=== PATIENT | male | born 1945 | race Caucasian/White ===

== ENCOUNTER 2016-12-03 15:13 | Emergency (ER) | payer OTHER ==
[~2016-12-03 15:13] MED LIST: ALBUTEROL HFA60 DOSE IN; APIDRA1 ML; ASPIRIN ADULT L81 MG PO; BACTRIM1 TAB PO; CHLORTHALIDONE25 MG PO; CYMBALTA20 MG PO; FLOVENT HFA110 MCG IN; FUROSEMIDE20 MG PO; LAMICTAL25 M1 PO; LEVOFLOXACIN500 MG PO; LISINOPRIL10 MG PO; MIRAPEX0.25 MG PO; MUPIROCIN2 %; SPIRIVA18 MCG INH; [UNRECOGNIZED DRUG - OTHER]
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
--- NOTE | 2016-12-03 16:30 | ED CLINICAL REPORT ---
Clinical Report - Physicians/Mid Levels [facility] [address] [place] [address] 12/03/2016 15:13 Patient: ZHEN GRAHAM JR Time Seen: 15:19. Arrived- By ambulance. Historian- patient and EMS personnel. History limited by vague historian. HISTORY OF PRESENT ILLNESS Chief Complaint: LESION and TENDER AREA. This started several days ago and is still present. It was gradual in onset and has been constant. It is described as painful. It has been located on the right lower extremity and left lower extremity. A possible cause has been identified (The patient reports that in his house and there are insects and he wonders ifone they crawled across his feet they may have bitten him or injured his feet.). He had a recent insect bite (possibly). Similar symptoms previously: Several times. REVIEW OF SYSTEMS No chills, fever, sweats, calf pain or chest pain. No cough, difficulty breathing, pedal edema, palpitations or abdominal pain. No constipation, diarrhea, nausea, vomiting or urinary problems. All systems otherwise negative, except as recorded above. SOCIAL HISTORY Current every day light tobacco smoker (cigarette)- less than 1/2 a pack per day. FAMILY HISTORY Denies family medical history. ADDITIONAL NOTES The nursing notes have been reviewed. PHYSICAL EXAM Vital Signs: 12/03/2016 15:18 BP: 109/61. HR: 87. RR: 16. O2 saturation: 96%. Temp: 97.5 F. Pain level now: 7/10. Have been reviewed. Appearance: Alert. Eyes: Pupils equal, round and reactive to light. ENT: Pharynx normal. Neck: Neck supple. CVS: Normal heart rate and rhythm. Heart sounds normal. Respiratory: No respiratory distress. Breath sounds normal. Abdomen: Nontender. No organomegaly. Skin: Medium area of cellulitis with tenderness, erythema and warmth to right leg and left foot. He has a single medium abrasion on the left 5th toe with infection. Extremities: Extremities nontender. No calf tenderness. PROGRESS AND PROCEDURES Course of Care: Patient is stable. Patient/family counseled. Old medical records reviewed. Disposition: Discharged. Condition: stable. CLINICAL IMPRESSION Cellulitis of the right lower leg, left foot and left 5th toe. Single deep abrasion to the left 5th toe. INSTRUCTIONS Warnings: Further evaluation is necessary. GENERAL WARNINGS: Return or contact your physician immediately if your condition worsens or changes unexpectedly, if not improving as expected, or if other problems arise. Your Current Medications: CONTINUE TAKING THE FOLLOWING MEDICATIONS: Chlorthalidone Oral : Tablet 25 mg. DULoxetine HCl Oral : 20 mg daily. LamoTRIgine Oral : Tablet Dispersible 25 mg, 25mg bid. Lantus Subcutaneous : Solution 100 unit/mL, 75 Units every AM. Lisinopril Oral : 10 mg daily. Metoprolol Tartrate Oral : Tablet 25 mg, 1 tablet 2xday. Pramipexole Dihydrochloride Oral : Tablet 1 mg, 1 tablet 3x a day. Prescription Medications: Trimethoprim-Sulfamethoxazole DS: take 1 tablet orally every 12 hours for 10 days. No refill. Follow-up: Follow up with your doctor in seven days. Call for the next available appointment. Understanding of the discharge instructions verbalized by patient. Follow-up with: Ezekiel Mcclelland DPM, Podiatry, , [facility], [address] [place] [address], [address] [address] Follow up Tuesday in three days. Call for an appointment. (Electronically signed by Pérez Clemons MD 12/07/2016 10:26)
--- NOTE | 2016-12-03 16:30 | ED CLINICAL REPORT ---
Clinical Report - Physicians/Mid Levels [facility] [address] [place] [address] 12/03/2016 15:13 Patient: ZHEN GRAHAM JR Time Seen: 15:19. Arrived- By ambulance. Historian- patient and EMS personnel. History limited by vague historian. HISTORY OF PRESENT ILLNESS Chief Complaint: LESION and TENDER AREA. This started several days ago and is still present. It was gradual in onset and has been constant. It is described as painful. It has been located on the right lower extremity and left lower extremity. A possible cause has been identified (The patient reports that in his house and there are insects and he wonders ifone they crawled across his feet they may have bitten him or injured his feet.). He had a recent insect bite (possibly). Similar symptoms previously: Several times. REVIEW OF SYSTEMS No chills, fever, sweats, calf pain or chest pain. No cough, difficulty breathing, pedal edema, palpitations or abdominal pain. No constipation, diarrhea, nausea, vomiting or urinary problems. All systems otherwise negative, except as recorded above. SOCIAL HISTORY Current every day light tobacco smoker (cigarette)- less than 1/2 a pack per day. FAMILY HISTORY Denies family medical history. ADDITIONAL NOTES The nursing notes have been reviewed. PHYSICAL EXAM Vital Signs: 12/03/2016 15:18 BP: 109/61. HR: 87. RR: 16. O2 saturation: 96%. Temp: 97.5 F. Pain level now: 7/10. Have been reviewed. Appearance: Alert. Eyes: Pupils equal, round and reactive to light. ENT: Pharynx normal. Neck: Neck supple. CVS: Normal heart rate and rhythm. Heart sounds normal. Respiratory: No respiratory distress. Breath sounds normal. Abdomen: Nontender. No organomegaly. Skin: Medium area of cellulitis with tenderness, erythema and warmth to right leg and left foot. He has a single medium abrasion on the left 5th toe with infection. Extremities: Extremities nontender. No calf tenderness. PROGRESS AND PROCEDURES Course of Care: Patient is stable. Patient/family counseled. Old medical records reviewed. Disposition: Discharged. Condition: stable. CLINICAL IMPRESSION Cellulitis of the right lower leg, left foot and left 5th toe. Single deep abrasion to the left 5th toe. INSTRUCTIONS Warnings: Further evaluation is necessary. GENERAL WARNINGS: Return or contact your physician immediately if your condition worsens or changes unexpectedly, if not improving as expected, or if other problems arise. Your Current Medications: CONTINUE TAKING THE FOLLOWING MEDICATIONS: Chlorthalidone Oral : Tablet 25 mg. DULoxetine HCl Oral : 20 mg daily. LamoTRIgine Oral : Tablet Dispersible 25 mg, 25mg bid. Lantus Subcutaneous : Solution 100 unit/mL, 75 Units every AM. Lisinopril Oral : 10 mg daily. Metoprolol Tartrate Oral : Tablet 25 mg, 1 tablet 2xday. Pramipexole Dihydrochloride Oral : Tablet 1 mg, 1 tablet 3x a day. Prescription Medications: Trimethoprim-Sulfamethoxazole DS: take 1 tablet orally every 12 hours for 10 days. No refill. Follow-up: Follow up with your doctor in seven days. Call for the next available appointment. Understanding of the discharge instructions verbalized by patient. Follow-up with: Ezekiel Mcclelland DPM, Podiatry, , [facility], [address] [place] [address], [address] [address] Follow up Tuesday in three days. Call for an appointment. (Electronically signed by Pérez Clemons MD 12/07/2016 10:26)
--- NOTE | 2016-12-07 10:27 | ED MED RECONCILIATION SUMMARY ---
Patient: ZHEN GRAHAM JR Medication Reconciliation Report [facility] VisitID: [id number] [address] [place] [address] 71y, M Registration Date/Time: 12/03/2016 Weight: 78.9 kg Height/Length: 64 in. BMI: 29.9 ALLERGIES: PHENobarbital The patient's Home Medications are listed below: CONTINUE TAKING THE FOLLOWING MEDICATIONS: Chlorthalidone Oral (25 mg) DULoxetine HCl Oral 20 mg , daily LamoTRIgine Oral (25 mg) 25mg, bid Lantus Subcutaneous (100 unit/mL) 75 Units, every AM Lisinopril Oral 10 mg, daily Metoprolol Tartrate Oral (25 mg) 1 tablet, 2xday Pramipexole Dihydrochloride Oral (1 mg) 1 tablet, 3x a day The source(s) of the original Home Medication information: Not obtained. The following Medications were given to the patient in the Emergency Department: None. The following Medications were prescribed to the patient: Trimethoprim-Sulfamethoxazole DS: take 1 tablet orally every 12 hours for 10 days. No refill. -- Pérez Clemons MD
--- NOTE | 2016-12-07 10:27 | ED MAR SUMMARY ---
..... Medication Administration Record [facility] [address] [place], [place] [id number] Patient: ZHEN GRAHAM Visit ID: [id number] 71y, M Weight: 78.9 kg Height/Length: 64 in BMI: 29.9 ALLERGIES: PHENobarbital
--- NOTE | 2016-12-07 10:27 | ED DISCHARGE INSTRUCTIONS ---
Patient: ZHEN GRAHAM JR General Instructions [facility] VisitID: [id number] [place] [address] 71y, M Registration Date/Time: 12/03/2016 Cellulitis of the right lower leg, left foot and left 5th toe. Single deep abrasion to the left 5th toe. INSTRUCTIONS Warnings: Further evaluation is necessary. GENERAL WARNINGS: Return or contact your physician immediately if your condition worsens or changes unexpectedly, if not improving as expected, or if other problems arise. Your Current Medications: CONTINUE TAKING THE FOLLOWING MEDICATIONS: Chlorthalidone Oral : Tablet 25 mg. DULoxetine HCl Oral : 20 mg daily. LamoTRIgine Oral : Tablet Dispersible 25 mg, 25mg bid. Lantus Subcutaneous : Solution 100 unit/mL, 75 Units every AM. Lisinopril Oral : 10 mg daily. Metoprolol Tartrate Oral : Tablet 25 mg, 1 tablet 2xday. Pramipexole Dihydrochloride Oral : Tablet 1 mg, 1 tablet 3x a day. Prescription Medications: Trimethoprim-Sulfamethoxazole DS: take 1 tablet orally every 12 hours for 10 days. No refill. Follow-up: Follow up with your doctor in seven days. Call for the next available appointment. Understanding of the discharge instructions verbalized by patient. Follow-up with: Ezekiel Mcclelland DPM, Podiatry, , [facility], [address] [place] [address], [place] [address] Follow up Tuesday in three days. Call for an appointment. ADDITIONAL INFORMATION Cellulitis You have an infection of the skin known as cellulitis. This usually starts with a scrape, cut, insect bite, blister or other opening in the skin which becomes infected. This is a serious condition. It must be watched closely to be sure the infection is not spreading. With antibiotic treatment, the size of the red area will gradually shrink in size until the skin returns to normal. This will take 7-10 days. The red area should never increase in size once the antibiotic medicine has been started. Occasionally, an infection will be resistant to one antibiotic and another one will have to be used. Home Care: 1) Limit the use of the affected part, since excess movement can cause the infection to spread. 2) If the infection is on your leg, walk as little as possible during the first few days of the treatment. Keep your leg elevated while sitting. This will reduce swelling. 3) Take all of the antibiotic medicine exactly as directed until it is gone. Be careful not to miss any doses, especially during the first seven days. Follow Up with your doctor or this facility as directed. Check the infected area daily for the warning signs listed below. Get Prompt Medical Attention if any of the following occur: -- Spreading area of redness -- Increasing swelling or pain -- Appearance of pus or drainage -- Fever over 100.4 F (38.0 C) oral, or over 101.4 F (38.6 C) rectal, after two days on antibiotics Abrasions Abrasions are skin scrapes. Their treatment depends on how large and deep the abrasion is. Home Care: If you were given a bandage, change it once a day. If your bandage sticks to the wound, soak it in warm water until it loosens. Wash the area with soap and water to remove all the cream/ointment. You may do this in a sink, under a tub faucet or shower. Rinse off the soap and pat dry with a clean towel. Reapply cream/ointment according to your doctor's instructions. This will prevent infection and help prevent the bandage from sticking. Cover the wound with a fresh non-stick bandage (Telfa). Repeat steps 1 to 4 daily, or as directed by your doctor. If the bandage becomes wet or dirty, change it as soon as possible. You may use acetaminophen (Tylenol) or ibuprofen (Motrin, Advil) to control pain, unless another pain medicine was prescribed. [ NOTE : If you have chronic liver or kidney disease or ever had a stomach ulcer or GI bleeding, talk with your doctor before using these medicines.] Do not use ibuprofen in children under six months of age. Follow Up with your physician or this facility as directed by our staff. Most skin wounds heal within ten days. However, an infection may occur despite proper treatment. Therefore, look for the early signs of infection listed below. Get Prompt Medical Attention if any of the following occur: Increasing pain in the wound Increasing redness or swelling Pus coming from the wound Fever of 100.4F (38C) or higher, or as directed by your healthcare provider Sulfamethoxazole, Trimethoprim Oral tablet What is this medicine? SULFAMETHOXAZOLE; TRIMETHOPRIM or SMX-TMP (suhl fuh meth OK lauren zohl; trye METH oh prim) is a combination of a sulfonamide antibiotic and a second antibiotic, trimethoprim. It is used to treat or prevent certain kinds of bacterial infections. It will not work for colds, flu, or other viral infections. How should I use this medicine? Take this medicine by mouth with a full glass of water. Follow the directions on the prescription label. Take your medicine at regular intervals. Do not take it more often than directed. Do not skip doses or stop your medicine early. Talk to your craft center director regarding the use of this medicine in children. Special care may be needed. This medicine has been used in children as young as 2 months of age. What side effects may I notice from receiving this medicine? Side effects that you should report to your doctor or health career developer as soon as possible: allergic reactions like skin rash or hives, swelling of the face, lips, or tongue breathing problems fever or chills, sore throat irregular heartbeat, chest pain joint or muscle pain pain or difficulty passing urine red pinpoint spots on skin redness, blistering, peeling or loosening of the skin, including inside the mouth unusual bleeding or bruising unusually weak or tired yellowing of the eyes or skin Side effects that usually do not require medical attention (report to your doctor or health career developer if they continue or are bothersome): diarrhea dizziness headache loss of appetite nausea, vomiting nervousness What may interact with this medicine? Do not take this medicine with any of the following medications: aminobenzoate potassium dofetilide metronidazole This medicine may also interact with the following medications: MICHAEL inhibitors like benazepril, enalapril, lisinopril, and ramipril cyclosporine digoxin diuretics indomethacin medicines for diabetes methenamine methotrexate phenytoin potassium supplements pyrimethamine sulfinpyrazone tricyclic antidepressants warfarin What if I miss a dose? If you miss a dose, take it as soon as you can. If it is almost time for your next dose, take only that dose. Do not take double or extra doses. Where should I keep my medicine? Keep out of the reach of children. Store at room temperature between 20 to 25 degrees C (68 to 77 degrees F). Protect from light. Throw away any unused medicine after the expiration date. What should I tell my health care provider before I take this medicine? They need to know if you have any of these conditions: anemia asthma being treated with anticonvulsants if you frequently drink alcohol containing drinks kidney disease liver disease low level of folic acid or [id number] dehydrogenase poor nutrition or malabsorption porphyria severe allergies thyroid disorder an unusual or allergic reaction to sulfamethoxazole, trimethoprim, sulfa drugs, other medicines, foods, dyes, or preservatives or trying to get breast-feeding What should I watch for while using this medicine? Tell your doctor or health career developer if your symptoms do not improve. Drink several glasses of water a day to reduce the risk of kidney problems. Do not treat diarrhea with over the counter products. Contact your doctor if you have diarrhea that lasts more than 2 days or if it is severe and watery. This medicine can make you more sensitive to the sun. Keep out of the sun. If you cannot avoid being in the sun, wear protective clothing and use a sunscreen. Do not use sun lamps or tanning beds/booths. You have been given the following additional information: Cellulitis Abrasion Sulfamethoxazole, Trimethoprim Oral tablet (Electronically signed by Pérez Clemons MD 12/07/2016 10:26)
--- NOTE | 2016-12-07 10:27 | ED DISCHARGE INSTRUCTIONS ---
Patient: ZHEN GRAHAM JR General Instructions [facility] VisitID: [id number] [place] [address] 71y, M Registration Date/Time: 12/03/2016 Cellulitis of the right lower leg, left foot and left 5th toe. Single deep abrasion to the left 5th toe. INSTRUCTIONS Warnings: Further evaluation is necessary. GENERAL WARNINGS: Return or contact your physician immediately if your condition worsens or changes unexpectedly, if not improving as expected, or if other problems arise. Your Current Medications: CONTINUE TAKING THE FOLLOWING MEDICATIONS: Chlorthalidone Oral : Tablet 25 mg. DULoxetine HCl Oral : 20 mg daily. LamoTRIgine Oral : Tablet Dispersible 25 mg, 25mg bid. Lantus Subcutaneous : Solution 100 unit/mL, 75 Units every AM. Lisinopril Oral : 10 mg daily. Metoprolol Tartrate Oral : Tablet 25 mg, 1 tablet 2xday. Pramipexole Dihydrochloride Oral : Tablet 1 mg, 1 tablet 3x a day. Prescription Medications: Trimethoprim-Sulfamethoxazole DS: take 1 tablet orally every 12 hours for 10 days. No refill. Follow-up: Follow up with your doctor in seven days. Call for the next available appointment. Understanding of the discharge instructions verbalized by patient. Follow-up with: Ezekiel Mcclelland DPM, Podiatry, , [facility], [address] [place] [address], [place] [id number] Follow up Tuesday in three days. Call for an appointment. ADDITIONAL INFORMATION Cellulitis You have an infection of the skin known as cellulitis. This usually starts with a scrape, cut, insect bite, blister or other opening in the skin which becomes infected. This is a serious condition. It must be watched closely to be sure the infection is not spreading. With antibiotic treatment, the size of the red area will gradually shrink in size until the skin returns to normal. This will take 7-10 days. The red area should never increase in size once the antibiotic medicine has been started. Occasionally, an infection will be resistant to one antibiotic and another one will have to be used. Home Care: 1) Limit the use of the affected part, since excess movement can cause the infection to spread. 2) If the infection is on your leg, walk as little as possible during the first few days of the treatment. Keep your leg elevated while sitting. This will reduce swelling. 3) Take all of the antibiotic medicine exactly as directed until it is gone. Be careful not to miss any doses, especially during the first seven days. Follow Up with your doctor or this facility as directed. Check the infected area daily for the warning signs listed below. Get Prompt Medical Attention if any of the following occur: -- Spreading area of redness -- Increasing swelling or pain -- Appearance of pus or drainage -- Fever over 100.4 F (38.0 C) oral, or over 101.4 F (38.6 C) rectal, after two days on antibiotics Abrasions Abrasions are skin scrapes. Their treatment depends on how large and deep the abrasion is. Home Care: If you were given a bandage, change it once a day. If your bandage sticks to the wound, soak it in warm water until it loosens. Wash the area with soap and water to remove all the cream/ointment. You may do this in a sink, under a tub faucet or shower. Rinse off the soap and pat dry with a clean towel. Reapply cream/ointment according to your doctor's instructions. This will prevent infection and help prevent the bandage from sticking. Cover the wound with a fresh non-stick bandage (Telfa). Repeat steps 1 to 4 daily, or as directed by your doctor. If the bandage becomes wet or dirty, change it as soon as possible. You may use acetaminophen (Tylenol) or ibuprofen (Motrin, Advil) to control pain, unless another pain medicine was prescribed. [ NOTE : If you have chronic liver or kidney disease or ever had a stomach ulcer or GI bleeding, talk with your doctor before using these medicines.] Do not use ibuprofen in children under six months of age. Follow Up with your physician or this facility as directed by our staff. Most skin wounds heal within ten days. However, an infection may occur despite proper treatment. Therefore, look for the early signs of infection listed below. Get Prompt Medical Attention if any of the following occur: Increasing pain in the wound Increasing redness or swelling Pus coming from the wound Fever of 100.4F (38C) or higher, or as directed by your healthcare provider Sulfamethoxazole, Trimethoprim Oral tablet What is this medicine? SULFAMETHOXAZOLE; TRIMETHOPRIM or SMX-TMP (suhl fuh meth OK lauren zohl; trye METH oh prim) is a combination of a sulfonamide antibiotic and a second antibiotic, trimethoprim. It is used to treat or prevent certain kinds of bacterial infections. It will not work for colds, flu, or other viral infections. How should I use this medicine? Take this medicine by mouth with a full glass of water. Follow the directions on the prescription label. Take your medicine at regular intervals. Do not take it more often than directed. Do not skip doses or stop your medicine early. Talk to your duty engineer regarding the use of this medicine in children. Special care may be needed. This medicine has been used in children as young as 2 months of age. What side effects may I notice from receiving this medicine? Side effects that you should report to your doctor or health career advisor as soon as possible: allergic reactions like skin rash or hives, swelling of the face, lips, or tongue breathing problems fever or chills, sore throat irregular heartbeat, chest pain joint or muscle pain pain or difficulty passing urine red pinpoint spots on skin redness, blistering, peeling or loosening of the skin, including inside the mouth unusual bleeding or bruising unusually weak or tired yellowing of the eyes or skin Side effects that usually do not require medical attention (report to your doctor or health career advisor if they continue or are bothersome): diarrhea dizziness headache loss of appetite nausea, vomiting nervousness What may interact with this medicine? Do not take this medicine with any of the following medications: aminobenzoate potassium dofetilide metronidazole This medicine may also interact with the following medications: MICHAEL inhibitors like benazepril, enalapril, lisinopril, and ramipril cyclosporine digoxin diuretics indomethacin medicines for diabetes methenamine methotrexate phenytoin potassium supplements pyrimethamine sulfinpyrazone tricyclic antidepressants warfarin What if I miss a dose? If you miss a dose, take it as soon as you can. If it is almost time for your next dose, take only that dose. Do not take double or extra doses. Where should I keep my medicine? Keep out of the reach of children. Store at room temperature between 20 to 25 degrees C (68 to 77 degrees F). Protect from light. Throw away any unused medicine after the expiration date. What should I tell my health care provider before I take this medicine? They need to know if you have any of these conditions: anemia asthma being treated with anticonvulsants if you frequently drink alcohol containing drinks kidney disease liver disease low level of folic acid or [id number] dehydrogenase poor nutrition or malabsorption porphyria severe allergies thyroid disorder an unusual or allergic reaction to sulfamethoxazole, trimethoprim, sulfa drugs, other medicines, foods, dyes, or preservatives or trying to get breast-feeding What should I watch for while using this medicine? Tell your doctor or health career advisor if your symptoms do not improve. Drink several glasses of water a day to reduce the risk of kidney problems. Do not treat diarrhea with over the counter products. Contact your doctor if you have diarrhea that lasts more than 2 days or if it is severe and watery. This medicine can make you more sensitive to the sun. Keep out of the sun. If you cannot avoid being in the sun, wear protective clothing and use a sunscreen. Do not use sun lamps or tanning beds/booths. You have been given the following additional information: Cellulitis Abrasion Sulfamethoxazole, Trimethoprim Oral tablet (Electronically signed by Pérez Clemons MD 12/07/2016 10:26)
--- NOTE | 2016-12-07 10:27 | ED MED RECONCILIATION SUMMARY ---
Patient: ZHEN GRAHAM JR Medication Reconciliation Report VisitID: [id number] [address] [place] [address] 71y, M Registration Date/Time: 12/03/2016 Weight: 78.9 kg Height/Length: 64 in. BMI: 29.9 ALLERGIES: PHENobarbital The patient's Home Medications are listed below: CONTINUE TAKING THE FOLLOWING MEDICATIONS: Chlorthalidone Oral (25 mg) DULoxetine HCl Oral 20 mg , daily LamoTRIgine Oral (25 mg) 25mg, bid Lantus Subcutaneous (100 unit/mL) 75 Units, every AM Lisinopril Oral 10 mg, daily Metoprolol Tartrate Oral (25 mg) 1 tablet, 2xday Pramipexole Dihydrochloride Oral (1 mg) 1 tablet, 3x a day The source(s) of the original Home Medication information: Not obtained. The following Medications were given to the patient in the Emergency Department: None. The following Medications were prescribed to the patient: Trimethoprim-Sulfamethoxazole DS: take 1 tablet orally every 12 hours for 10 days. No refill. -- Pérez Clemons MD
--- NOTE | 2016-12-07 10:27 | ED MAR SUMMARY ---
..... Medication Administration Record [facility] [address] [place], [place] [id number] Patient: ZHEN GRAHAM Visit ID: [id number] 71y, M Weight: 78.9 kg Height/Length: 64 in BMI: 29.9 ALLERGIES: PHENobarbital
== END 2016-12-03 16:50 | disposition home or self-care (01) ==
LOC: ED SRH 15:13
DX: L03.115 Cellulitis of right lower limb (principal); L03.032 Cellulitis of left toe; F17.210 Nicotine dependence, cigarettes, uncomplicated

== ENCOUNTER 2017-03-13 14:35 | Emergency (ER) | payer OTHER ==
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
--- NOTE | 2017-03-13 18:00 | ED ORDER SUMMARY ---
..... Patient: ZHEN GRAHAM JR OrderSheet [facility] VisitID: [id number] [place] [address] 71y, M Registration Date/Time: 03/13/2017 ORDER SHEET Weight: 78 kg (stated) Allergies: PHENobarbital GENERAL ORDERS: Urine Drug Screen Urgent (15:25 03/13/2017 Melissa Bennett per protocol) (15:25 Melissa Arora.Jason) Breathalyzer (16:37 03/13/2017 Alba KRISHNA) (17:18 Ama) MEDICATION ORDERS: IV FLUIDS: ORDER SHEET NOTES: [Electronically signed by Asher Prado R.N. (18:38 03/13/2017)] [Electronically signed by Dana Brandt MD (21:46 03/13/2017)] [Electronically locked/signed by Asher Prado R.N. (18:38 03/13/2017)]
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
--- NOTE | 2017-03-13 18:00 | ED CLINICAL REPORT ---
Clinical Report - Physicians/Mid Levels [place] [address] [place] [address] 03/13/2017 14:35 Patient: ZHEN GRAHAM JR Time Seen: 15:00. Arrived- By ambulance. In custody. Historian- patient and EMS personnel. HISTORY OF PRESENT ILLNESS Chief Complaint: AGITATED. This started today. The patient has experienced situational problems. Recent methamphetamines use and alcohol consumption. Has been paranoid but eating or sleeping and not been depressed. No anxiety, anger, unusual behavior, suicidal thoughts or self-injury inflicted. He has had delusions and hallucinations. The symptoms are described as moderate. No injury is present. Additional history - The police report states that the patient was found to be agitated outside his home, holding a pair of pliers and pretending it was a gun. Patient was pointing the pliers at his house and yelling for people to come out of it. The police state that they tried to get the patient to come to the emergency department voluntarily for a mental health evaluation; however, patient refused and so the patient was brought by the police involuntarily. Police report states that they have responded to multiple calls to the patient's house after patient reported people squatting in his crawlspace. Nobody has ever been found to be living on the patient's property besides the patient, and police report states that the patient has almost always been under the influence of alcohol when they have been called to his house. Patient is also known to use methamphetamines. Patient states that he did not intend to harm anybody, but he just wanted the people to leave his house. Similar symptoms previously: Recent medical care: The patient was seen recently by a health care provider. REVIEW OF SYSTEMS No headache, dizziness, weakness, chest pain or palpitations. No abdominal pain, vomiting, diarrhea, black stools or numbness. No fever, sore throat, cough, difficulty breathing or urinary frequency. No skin rash, enlarged lymph nodes, joint pain, weight loss or laceration. All systems otherwise negative, except as recorded above. PAST HISTORY Problems: Abscess. MRSA Infection. Sciatica. Substance Abuse. Hard of Hearing. Syncope. Peripheral Neuropathy. Tetanus Status. Immunizations. Pancreatitis. Hyperkalemia. Dehydration. Renal Failure. Hypertension. Additional Surgeries: Ankle (bilat). Appendectomy. Back Surgery. Clavical repair. Hand (bilat). Knee Surgery. Neck Surgery. Shoulder Surgery. Splenectomy. Medications: Chlorthalidone Oral (Tablet 25 mg). DULoxetine HCl Oral 20 mg , daily. LamoTRIgine Oral (Tablet Dispersible 25 mg) 25mg, bid. Lantus Subcutaneous (Solution 100 unit/mL) 75 Units, every AM. Lisinopril Oral 10 mg, daily. Metoprolol Tartrate Oral (Tablet 25 mg) 1 tablet, 2xday. Pramipexole Dihydrochloride Oral (Tablet 1 mg) 1 tablet, 3x a day. Allergies: PHENobarbital. Definite Severe (Coma). SOCIAL HISTORY Smoker- current status unknown. Alcohol use. History of drug use: methamphetamines. ADDITIONAL NOTES The nursing notes have been reviewed. PHYSICAL EXAM Vital Signs: 03/13/2017 14:45 BP: 128/73. HR: 108. RR: 20. O2 saturation: 93%. Temp: 98.3 F. Have been reviewed. Appearance: Alert. No acute distress. Is disheveled. Eyes: Pupils equal, round and reactive to light. Neck: Normal inspection. Neck supple. CVS: Normal heart rate and rhythm. Heart sounds normal. Respiratory: Breath sounds normal. Chest nontender. Abdomen: Soft and nontender. Back: No tenderness. Skin: Skin warm and dry. Normal skin color. Normal skin turgor. Extremities: Extremities exhibit normal ROM. No lower extremity edema. Psych / Neuro: Oriented X 3. Mood and affect normal. Speech normal. Cognition normal. Thought process and content normal. Cranial nerves normal (as tested). No cerebellar findings. No motor deficit. No sensory deficit. LABS, X-RAYS, AND EKG Laboratory Tests: Urine Drug Screen: (NEIL: 03/13/2017 15:20) ( MsgRcvd 03/13/2017 15:49) Final results Test Result Flag Units (Reference) AMPHETAMINE/METHAMPHETAMINE POSITIVE H (NEGATIVE) BARBITURATE NEGATIVE (NEGATIVE) BENZODIAZEPINE NEGATIVE (NEGATIVE) CANNABINOID POSITIVE H (NEGATIVE) COCAINE NEGATIVE (NEGATIVE) ECSTASY NEGATIVE (NEGATIVE) METHADONE NEGATIVE (NEGATIVE) OPIATE NEGATIVE (NEGATIVE) The urine drug screen is a qualitative screening test fordrug overdose and abuse. All screen results should beconsidered as presumptive.Drugs screened for are as follows:BenzodiazepinesCocaineAmphetamines/MetamphetaminesTHC (Tetrahydrocannabinol)OpiatesBarbituratesEcstasyMethadonePositive results are unconfirmed. For confirmation, notifythe lab for the specimen to be sent to the reference lab.All confirmations must be performed by a differentmethodology.The ingestion of natural herbal and plant productscontaining Ephedra/Ephedra metabolites can produce in urineone or more substances capable of cross reacting withamphetamine/methamphetamine immunoassays. These testsprovide a preliminary result only. A more specificalternative chemical method must be used to obtain aconfirmed analytical result. . Pulse Oximetry: 03/13/2017 14:45 O2 saturation: 93%. (FIO2 - room air). Interpretation: normal. PROGRESS AND PROCEDURES Course of Care: The pt was coherent in the emergency department, and answered questions appropriately. It was not clear whether the pt's perception of having people at his home was correct or not; however, this was a chronic issue, likely at least exacerbated, if not fully caused, by the pt's methamphetamine and alcohol abuse. Given the substance abuse and the likelihood to cause the kind of chronic symptoms the patient is having, I did not feel that a mental health evaluation would be helpful at this time. Patient stated he would like to go home, and the patient was not suicidal or homicidal. Patient counseled in person regarding the patient's stable condition, test results, diagnosis and need for follow-up. Concerns were addressed. Old medical records reviewed. Disposition: Discharged. Condition: stable. CLINICAL IMPRESSION Substance abuse problems: abuse of methamphetamine. INSTRUCTIONS Warnings: GENERAL WARNINGS: Return or contact your physician immediately if your condition worsens or changes unexpectedly, if not improving as expected, or if other problems arise. Your Current Medications: CONTINUE TAKING THE FOLLOWING MEDICATIONS: Chlorthalidone Oral : Tablet 25 mg. DULoxetine HCl Oral : 20 mg daily. LamoTRIgine Oral : Tablet Dispersible 25 mg, 25mg bid. Lantus Subcutaneous : Solution 100 unit/mL, 75 Units every AM. Lisinopril Oral : 10 mg daily. Metoprolol Tartrate Oral : Tablet 25 mg, 1 tablet 2xday. Pramipexole Dihydrochloride Oral : Tablet 1 mg, 1 tablet 3x a day. Follow-up: Follow up with your doctor. Call for the next available appointment. Understanding of the discharge instructions verbalized by patient. (Electronically signed by Dana Brandt MD 03/13/2017 21:46)
--- NOTE | 2017-03-13 18:00 | ED ORDER SUMMARY ---
..... Patient: ZHEN GRAHAM JR OrderSheet [facility] VisitID: [id number] [place] [address] 71y, M Registration Date/Time: 03/13/2017 ORDER SHEET Weight: 78 kg (stated) Allergies: PHENobarbital GENERAL ORDERS: Urine Drug Screen Urgent (15:25 03/13/2017 Melissa Bennett per protocol) (15:25 Melissa Arora.Jason) Breathalyzer (16:37 03/13/2017 Alba KRISHNA) (17:18 Ama) MEDICATION ORDERS: IV FLUIDS: ORDER SHEET NOTES: [Electronically signed by Asher Prado R.N. (18:38 03/13/2017)] [Electronically signed by Dana Brandt MD (21:46 03/13/2017)] [Electronically locked/signed by Asher Prado R.N. (18:38 03/13/2017)]
--- NOTE | 2017-03-13 21:46 | ED MED RECONCILIATION SUMMARY ---
Patient: ZHEN GRAHAM JR Medication Reconciliation Report [facility] VisitID: [id number] [address] [place] [address] 71y, M Registration Date/Time: 03/13/2017 Weight: 78 kg Height/Length: 64 in. BMI: 29.5 ALLERGIES: PHENobarbital The patient's Home Medications are listed below: CONTINUE TAKING THE FOLLOWING MEDICATIONS: Chlorthalidone Oral (25 mg) DULoxetine HCl Oral 20 mg , daily LamoTRIgine Oral (25 mg) 25mg, bid Lantus Subcutaneous (100 unit/mL) 75 Units, every AM Lisinopril Oral 10 mg, daily Metoprolol Tartrate Oral (25 mg) 1 tablet, 2xday Pramipexole Dihydrochloride Oral (1 mg) 1 tablet, 3x a day The source(s) of the original Home Medication information: Not obtained. The following Medications were given to the patient in the Emergency Department: None. The following Medications were prescribed to the patient: None.
--- NOTE | 2017-03-13 21:46 | ED MAR SUMMARY ---
..... Medication Administration Record [facility] [address] [place], [place] [id number] Patient: ZHEN GRAHAM Visit ID: [id number] 71y, M Weight: 78.0 kg Height/Length: 64 in BMI: 29.5 ALLERGIES: PHENobarbital
--- NOTE | 2017-03-13 21:46 | ED MED RECONCILIATION SUMMARY ---
Patient: ZHEN GRAHAM JR Medication Reconciliation Report [facility] VisitID: [id number] [address] [place] [address] 71y, M Registration Date/Time: 03/13/2017 Weight: 78 kg Height/Length: 64 in. BMI: 29.5 ALLERGIES: PHENobarbital The patient's Home Medications are listed below: CONTINUE TAKING THE FOLLOWING MEDICATIONS: Chlorthalidone Oral (25 mg) DULoxetine HCl Oral 20 mg , daily LamoTRIgine Oral (25 mg) 25mg, bid Lantus Subcutaneous (100 unit/mL) 75 Units, every AM Lisinopril Oral 10 mg, daily Metoprolol Tartrate Oral (25 mg) 1 tablet, 2xday Pramipexole Dihydrochloride Oral (1 mg) 1 tablet, 3x a day The source(s) of the original Home Medication information: Not obtained. The following Medications were given to the patient in the Emergency Department: None. The following Medications were prescribed to the patient: None.
--- NOTE | 2017-03-13 21:46 | ED DISCHARGE INSTRUCTIONS ---
Patient: ZHEN GRAHAM General Instructions [facility] VisitID: [id number] [place] [address] 71y, M Registration Date/Time: 03/13/2017 Substance abuse problems: abuse of methamphetamine. INSTRUCTIONS Warnings: GENERAL WARNINGS: Return or contact your physician immediately if your condition worsens or changes unexpectedly, if not improving as expected, or if other problems arise. Your Current Medications: CONTINUE TAKING THE FOLLOWING MEDICATIONS: Chlorthalidone Oral : Tablet 25 mg. DULoxetine HCl Oral : 20 mg daily. LamoTRIgine Oral : Tablet Dispersible 25 mg, 25mg bid. Lantus Subcutaneous : Solution 100 unit/mL, 75 Units every AM. Lisinopril Oral : 10 mg daily. Metoprolol Tartrate Oral : Tablet 25 mg, 1 tablet 2xday. Pramipexole Dihydrochloride Oral : Tablet 1 mg, 1 tablet 3x a day. Follow-up: Follow up with your doctor. Call for the next available appointment. Understanding of the discharge instructions verbalized by patient. (Electronically signed by Dana Brandt MD 03/13/2017 21:46)
--- NOTE | 2017-03-13 21:46 | ED MAR SUMMARY ---
..... Medication Administration Record [facility] [address] [place], [place] [id number] Patient: ZHEN GRAHAM Visit ID: [id number] 71y, M Weight: 78.0 kg Height/Length: 64 in BMI: 29.5 ALLERGIES: PHENobarbital
--- NOTE | 2017-03-13 21:46 | ED DISCHARGE INSTRUCTIONS ---
Patient: ZHEN GRAHAM General Instructions [facility] VisitID: [id number] [place] [address] 71y, M Registration Date/Time: 03/13/2017 Substance abuse problems: abuse of methamphetamine. INSTRUCTIONS Warnings: GENERAL WARNINGS: Return or contact your physician immediately if your condition worsens or changes unexpectedly, if not improving as expected, or if other problems arise. Your Current Medications: CONTINUE TAKING THE FOLLOWING MEDICATIONS: Chlorthalidone Oral : Tablet 25 mg. DULoxetine HCl Oral : 20 mg daily. LamoTRIgine Oral : Tablet Dispersible 25 mg, 25mg bid. Lantus Subcutaneous : Solution 100 unit/mL, 75 Units every AM. Lisinopril Oral : 10 mg daily. Metoprolol Tartrate Oral : Tablet 25 mg, 1 tablet 2xday. Pramipexole Dihydrochloride Oral : Tablet 1 mg, 1 tablet 3x a day. Follow-up: Follow up with your doctor. Call for the next available appointment. Understanding of the discharge instructions verbalized by patient. (Electronically signed by Dana Brandt MD 03/13/2017 21:46)
== END 2017-03-13 18:10 | disposition home or self-care (01) ==
LOC: ED SRH 14:35
DX: F15.10 Other stimulant abuse, uncomplicated (principal); I10 Essential (primary) hypertension; Z79.4 Long term (current) use of insulin; Z79.899 Other long term (current) drug therapy; Z88.8 Allergy status to other drugs, medicaments and biological substances
CPT/HCPCS: 92760; 92761; 92762; 92763; 92764; 92765; 92766; 92767